=== PATIENT | female | born 1970 | race Two or more races ===

== ENCOUNTER 2016-03-09 19:22 | Emergency (ER) | payer BC, OTHER ==
[2016-03-09 19:39] VITALS: BP 127/72; PULSE 80; RESP 18; TEMP 97.7; O2SAT 96
[2016-03-09] MEDS ORDERED: MAALOX/HYOSC GI COCKTAIL 45 ML BOTTLE PO ONE (20:05)
[2016-03-09 20:21] LABS: % IMMATURE GRANULYOCYTES 0.2 % (0.0-1.1); ABSOLUTE IMMATURE GRANULOCYTES 0.01 10^3/uL (0.00-0.10); ADD DIFF? NO; ADD MORPH? NO; ADD SCAN? NO; ATYPICAL LYMPHOCYTE FLAG 10 (0-99); FRAGMENT RBC FLAG 0 (0-99); HEMATOCRIT 45.6 % (38.0-47.0); LEFT SHIFT FLG 0 (0-99); LIPEMIA HEMOLYSIS FLAG 80 (0-99); MEAN CELL HEMOGLOBIN 30.3 pg (27.9-34.1); MEAN CELL HEMOGLOBIN CONCENTR. 32.9 g/dL (32.4-36.7); MEAN CELL VOLUME 92.1 fL (81.5-99.8); PLATELET CLUMPS FLAG 10 (0-99); PLATELET COUNT 193 10^3/uL (150-400); RED BLOOD CELL COUNT 4.95 10^6/uL (4.18-5.33); RED CELL DISTRIBUTION WIDTH 12.1 % (11.5-15.2)
[2016-03-09 20:27] LABS: COLOR YELLOW; LEUKOCYTE ESTERASE,URINE 2+ (NEGATIVE); NITRITE,URINE NEGATIVE (NEGATIVE)
[2016-03-09 20:37] LABS: ALANINE AMINOTRANSFERASE 32 IU/L (9-52); ALBUMIN 4.5 g/dL (3.5-5.0); ALKALINE PHOSPHATASE 61 IU/L (38-126); ANION GAP 12 mEq/L (8-16); ASPARTATE AMINOTRANSFERASE 24 IU/L (14-46); BILIRUBIN,TOTAL 0.5 mg/dL (0.1-1.4); CARBON DIOXIDE 31 mEq/l (22-31); CHLORIDE 100 mEq/L (97-110); CREATININE 0.7 mg/dL (0.6-1.0); GLOMERULAR FILTRATION RATE > 60; GLUCOSE 96 mg/dL (70-100); SODIUM 143 mEq/L (134-144); TOTAL PROTEIN 7.9 g/dL (6.3-8.2)
[2016-03-09 20:45] LABS: BACTERIA 2+ /hpf (NONE SEEN); WBC,URINE 25-50 /hpf (0-3)
[2016-03-09] MEDS ORDERED: CEPHALEXIN 500 MG CAP PO ONE (21:01)
--- NOTE | 2016-03-09 21:03 | UCPHY ---
H & P Patient Type: New Chief Complaint Nursing Narrative: MULTIPLE COMPLAINTS, tongue feels weird, she has a strange smell, stomach pain and feelt feel bold, also bones hurt. Denies fever, denies n.v.d Time Seen by Provider: 03/09/16 19:48 HPI/ROS: This patient had many somatic complaints over the past 6 months. She reports that her tongue feels wormy. She complains of air smiling find any. She has myalgias. She reports that her back hurts and bilateral flank area for multiple months [id number] intensity. She also reports a feeling of anxiety. She has decreased appetite recently as well. She reports mild epigastric burning discomfort as well that improves when she eats food. ROS: No high fevers or chills. No other constitutional complaints except mild fatigue. HEENT: She has intermittent frontal headaches but none currently. She reports no pulmonary symptoms. No coughing. GI: No lower belly pain. No nausea or vomiting. : No complaints. Her last menstrual. Was urine half ago. 10 point ROS is otherwise negative Source: Patient, Family Exam Limitations: Language barrier (Patient's son and daughter translate. Her also translate some provides history ) - Personal History LMP (Females 10-55): Post Menopausal - Medical/Surgical History Hx Asthma: No Hx Chronic Respiratory Disease: No Hx Diabetes: No Hx Cardiac Disease: No Hx Renal Disease: No Hx Cirrhosis: No Hx Alcoholism: No Hx HIV/AIDS: No Hx Splenectomy or Spleen Trauma: No - Family History Significant Family History: No pertinent family hx - Social History Smoking Status: Never smoked Alcohol Use: None Drug Use: None Additional Social History: The patient is a homemaker - Physical Exam Exam: General Appearance: Alert, no distress. Eyes: Pupils equal and round no pallor or injection. ENT, Mouth: Mucous membranes moist. Respiratory: There are no retractions, lungs are clear to auscultation. Cardiovascular: Regular rate and rhythm. Gastrointestinal: Abdomen is soft with mild epigastric tenderness that reproduces her symptoms., no masses, bowel sounds normal. Back: Mild CVA tenderness bilaterally Neurological: Alert with no focal deficits Skin: Warm and dry, no rashes. Musculoskeletal: Neck is supple nontender. Extremities are symmetrical, full range of motion. Psychiatric: Mood and affect are normal DIFFERENTIAL DIAGNOSIS: After history and physical exam differential diagnosis was considered for pyelonephritis, cystitis, metabolic disarray, thyroid disease , anemia Constitutional: Initial Vital Signs Temperature (C) 36.5 C 03/09/16 19:35 Heart Rate 80 03/09/16 19:35 Respiratory Rate 18 03/09/16 19:35 Blood Pressure 127/72 H 03/09/16 19:35 O2 Sat (%) 96 03/09/16 19:35 O2 Delivery Mode Room Air Allergies/Adverse Reactions: No Known Allergies Allergy (Verified 03/09/16 19:34) Home Medications: Medication Instructions Recorded NO HOME MEDS 12/16/12 ALPRAZolam [Xanax 0.5 MG (*)] 03/09/16 Cephalexin [Keflex (*)] 500 mg PO TID #21 cap 03/09/16 Medical Decision Making ED Course/Re-evaluation: GI cocktail with some improvement in her epigastric discomfort CBC, metabolic panel and TSH are normal Keflex p.o. for the UTI. I counseled patient and family regarding her UTI and gastritis. No other concerning findings on workup. - Data Points Laboratory Results: Laboratory Results 03/09/16 20:12 03/09/16 20:12 03/09/16 03/09/16 20:12 20:10 WBC 5.67 10^3/uL (3.80-9.50) RBC 4.95 10^6/uL (4.18-5.33) Hgb 15.0 g/dL (12.6-16.3) Hct 45.6 % (38.0-47.0) MCV 92.1 fL (81.5-99.8) MCH 30.3 pg (27.9-34.1) MCHC 32.9 g/dL (32.4-36.7) RDW 12.1 % (11.5-15.2) Plt Count 193 10^3/uL (150-400) MPV 11.0 fL (8.7-11.7) Neut % (Auto) 51.2 % (39.3-74.2) Lymph % (Auto) 41.6 % (15.0-45.0) [place] % (Auto) 5.3 % (4.5-13.0) Eos % (Auto) 1.2 % (0.6-7.6) Baso % (Auto) 0.5 % (0.3-1.7) Nucleat RBC Rel Count 0.0 % (0.0-0.2) Absolute Neuts (auto) 2.90 10^3/uL (1.70-6.50) Absolute Lymphs (auto) 2.36 10^3/uL (1.00-3.00) Absolute Monos (auto) 0.30 10^3/uL (0.30-0.80) Absolute Eos (auto) 0.07 10^3/uL (0.03-0.40) Absolute Basos (auto) 0.03 10^3/uL (0.02-0.10) Absolute Nucleated RBC 0.00 10^3/uL (0-0.01) Immature Gran % 0.2 % (0.0-1.1) Immature Gran # 0.01 10^3/uL (0.00-0.10) Sodium 143 mEq/L (134-144) Potassium 4.0 mEq/L (3.5-5.2) Chloride 100 mEq/L (97-110) Carbon Dioxide 31 mEq/l (22-31) Anion Gap 12 mEq/L (8-16) BUN 15 mg/dL (7-23) Creatinine 0.7 mg/dL (0.6-1.0) Estimated GFR > 60 Glucose 96 mg/dL (70-100) Calcium 10.0 mg/dL (8.5-10.4) Total Bilirubin 0.5 mg/dL (0.1-1.4) AST 24 IU/L (14-46) ALT 32 IU/L (9-52) Alkaline Phosphatase 61 IU/L (38-126) Total Protein 7.9 g/dL (6.3-8.2) Albumin 4.5 g/dL (3.5-5.0) TSH 1.900 uIU/mL (0.465-4.680) Urine Color YELLOW Urine Appearance HAZY Urine pH 7.0 (5.0-7.5) Ur Specific [place] 1.010 (1.002-1.030) Urine Protein NEGATIVE (NEGATIVE) Urine Ketones NEGATIVE (NEGATIVE) Urine Blood 1+ H (NEGATIVE) Urine Nitrate NEGATIVE (NEGATIVE) Urine Bilirubin NEGATIVE (NEGATIVE) Urine Urobilinogen 0.2 EU (0.2-1.0) Ur Leukocyte Esterase 2+ H (NEGATIVE) Urine RBC 1-3 /hpf (0-3) Urine WBC 25-50 H /hpf (0-3) Ur Epithelial Cells TRACE /lpf (NONE-1+) Urine Bacteria 2+ H /hpf (NONE SEEN) Urine Glucose NEGATIVE (NEGATIVE) Medications Given: Discontinued Medications Cephalexin HCl (Keflex) 500 mg PO EDNOW ONE PRN Reason: Protocol Stop: 03/09/16 21:02 Last Admin: 03/09/16 21:16 Dose: 500 mg Miscellaneous Medication (Gi Cocktail(No Lido)) 45 ml PO EDNOW ONE Stop: 03/09/16 20:06 Last Admin: 03/09/16 20:21 Dose: 45 ml Departure - Departure Disposition: Home, Routine, Self-Care Clinical Impression: Urinary tract infection Qualifiers: Urinary tract infection type: acute pyelonephritis Qualifier Code: (N10) Acute pyelonephritis Condition: Good Instructions: Gastritis (ED), Urinary Tract Infection in Women (ED) Additional Instructions: Diagnoses: 1. Gastritis 2. Urinary tract infection Plan: Drink plenty fluids Light diet to feel improved Prilosec-40 mg daily [id number] until stomach feels improved Maalox in addition as needed Keflex antibiotic for urinary tract infection Return for any significant worsening despite the treatment plan Follow up with primary care physician for any ongoing symptoms despite treatment plan. Referrals: HONG RUIZ,. [Primary Care Provider] - As per Instructions Prescriptions: Cephalexin [Keflex (*)] 500 mg PO TID #21 cap - PQRS PQRS Measurement: NA
== END 2016-03-09 21:14 | disposition home or self-care (01) ==
LOC: CED 19:22
DX: K29.70 Gastritis, unspecified, without bleeding (principal); N39.0 Urinary tract infection, site not specified; F41.1 Generalized anxiety disorder
CPT/HCPCS: 80053-PO; 81003-PO; 81015-PO; 84443-PO; 85025-PO; 99204-PO; G0463-PO

== ENCOUNTER 2016-03-13 16:09 | Emergency (ER) | payer BC, OTHER ==
[2016-03-13 16:30] VITALS: BP 163/77; PULSE 81; RESP 16; TEMP 98.1; O2SAT 97
[2016-03-13] MEDS ORDERED: NS 1,000 ML IV ONE (17:37)
[2016-03-13 17:58] LABS: % IMMATURE GRANULYOCYTES 0.2 % (0.0-1.1); ABSOLUTE IMMATURE GRANULOCYTES 0.01 10^3/uL (0.00-0.10); ADD DIFF? NO; ADD MORPH? NO; ADD SCAN? NO; ATYPICAL LYMPHOCYTE FLAG 30 (0-99); FRAGMENT RBC FLAG 0 (0-99); HEMATOCRIT 41.3 % (38.0-47.0); HEMOGLOBIN 13.8 g/dL (12.6-16.3); LEFT SHIFT FLG 0 (0-99); LIPEMIA HEMOLYSIS FLAG 80 (0-99); MEAN CELL HEMOGLOBIN 30.6 pg (27.9-34.1); MEAN CELL HEMOGLOBIN CONCENTR. 33.4 g/dL (32.4-36.7); MEAN CELL VOLUME 91.6 fL (81.5-99.8); MEAN PLATELET VOLUME 11.2 fL (8.7-11.7); PLATELET CLUMPS FLAG 10 (0-99); PLATELET COUNT 193 10^3/uL (150-400); RED BLOOD CELL COUNT 4.51 10^6/uL (4.18-5.33)
[2016-03-13 18:06] LABS: ALANINE AMINOTRANSFERASE 35 IU/L (9-52); ALBUMIN 3.9 g/dL (3.5-5.0); ALKALINE PHOSPHATASE 49 IU/L (38-126); ANION GAP 10 mEq/L (8-16); ASPARTATE AMINOTRANSFERASE 22 IU/L (14-46); BILIRUBIN,TOTAL 0.7 mg/dL (0.1-1.4); BILIRUBIN-CONJUGATED 0.2 mg/dL (0.0-0.5); BILIRUBIN-UNCONJUGATED 0.5 mg/dL (0.0-1.1); CALCIUM 9.5 mg/dL (8.5-10.4); CARBON DIOXIDE 28 mEq/l (22-31); CHLORIDE 102 mEq/L (97-110); CREATININE 0.7 mg/dL (0.6-1.0); GLOMERULAR FILTRATION RATE > 60; GLUCOSE 87 mg/dL (70-100); POTASSIUM 3.7 mEq/L (3.5-5.2); SODIUM 140 mEq/L (134-144); TOTAL PROTEIN 7.2 g/dL (6.3-8.2)
--- NOTE | 2016-03-13 18:28 | UCPHY ---
H & P Patient Type: Established Chief Complaint Nursing Narrative: body aches for 8 months .multiple complaints for last 8 months. vaginal d/c . Time Seen by Provider: 03/13/16 17:03 HPI/ROS: CHIEF COMPLAINT: Body aches, vaginal discharge HISTORY OF PRESENT ILLNESS: This is a 45-year-old female who was seen at urgent care 5 days ago with multiple complaints including body aches, abdominal pain, a foul taste in her mouth, shaking, and cold feet. At that time she had extensive workup including labs which were all normal. Urinalysis was suggestive of possible urinary tract infections patient was placed on Keflex. She was also given Prilosec for abdominal upset. She returns today reporting ongoing body aches, especially in the lower back as well as ongoing nausea. She also reports vaginal discharge which is green. Vaginal discharge is not itchy. On further history patient's complaints of muscle aches and body aches have been present for almost 8 months. She has also been reporting abdominal discomfort for about 8 months. She has seen Gastroenterology and had upper and lower endoscopy without significant findings. Sounds like she has been prescribed Xanax to use to help her sleep. She reports feeling little energy in the morning which she attributes to taking the Xanax to help her sleep. Her muscle aches become worse as the day goes on. She has had no fevers, rash, vomiting, or diarrhea throughout this illness. She has no joint swelling. Her primary care physician is AYLIN Sheikh at [facility]. No fever, chills, chest pain, shortness of breath, palpitations, vomiting, diarrhea, urinary complaints, headache, lightheadedness. REVIEW OF SYSTEMS: Aside from elements discussed in the HPI, a comprehensive 10-point review of systems was reviewed and is negative. PAST MEDICAL HISTORY: Postmenopausal. Patient reports that her last period was a year ago. SOCIAL HISTORY: . Here with her family. They are serving as an regional guide. VITAL SIGNS Reviewed by me. GENERAL: Well-developed, well-nourished, tearful, reports being frustrated that no one has been able to find an answer to her complaints. HEENT: Atraumatic. Eyes: No icterus, no injection. Mouth: moist mucous membranes. No erythema or lesions. Neck: supple with no adenopathy. LUNGS: Clear to auscultation bilaterally, no wheezes, rhonchi or rales. CARDIAC: Regular rate and rhythm, no rubs, murmurs or gallops. ABDOMEN: Soft, mild suprapubic tenderness, questionable fullness. Nondistended , bowel sounds normal. BACK: No CVA tenderness. PELVIC: Frothy yellow green watery discharge. Slight left adnexal tenderness on bimanual. Uterine fullness on bimanual exam. EXTREMITIES: No trauma. No edema. Range of motion is normal throughout. No palpable tenderness in the muscles. No erythema. No joint swelling. NEURO: Alert and oriented, grossly nonfocal. SKIN: Warm and dry, no rash. PSYCHIATRIC: Normal mentation, no agitation. - Personal History LMP (Females 10-55): Post Menopausal - Medical/Surgical History Hx Asthma: No Hx Chronic Respiratory Disease: No Hx Diabetes: No Hx Cardiac Disease: No Hx Renal Disease: No Hx Cirrhosis: No Hx Alcoholism: No Hx HIV/AIDS: No Hx Splenectomy or Spleen Trauma: No Other PMH: PCP Carlito Layton. FLU vacc NONE. Tetanus ??? Denies Surgery - Family History Significant Family History: No pertinent family hx - Social History Smoking Status: Never smoked Constitutional: Initial Vital Signs Temperature (C) 36.7 C 03/13/16 16:22 Heart Rate 81 03/13/16 16:22 Respiratory Rate 16 03/13/16 16:22 Blood Pressure 163/77 H 03/13/16 16:22 O2 Sat (%) 97 03/13/16 16:22 O2 Delivery Mode Room Air Allergies/Adverse Reactions: No Known Allergies Allergy (Verified 03/13/16 16:25) Home Medications: Medication Instructions Recorded ALPRAZolam [Xanax 0.5 MG (*)] 03/09/16 Cephalexin [Keflex (*)] 500 mg PO TID #21 cap 03/09/16 Metronidazole 500 mg PO BID #14 tablet 03/13/16 Prilosec Otc 03/13/16 Medical Decision Making ED Course/Re-evaluation: 45-year-old female presenting with complaints of body aches, nausea, shaking, abdominal upset for months. Laboratory evaluation evaluation urgent care largely unremarkable. Patient does have vaginal discharge on examination. This is positive for clue cells. Patient will be treated for for possible bacterial vaginosis. DNA probes are pending at this time. I did discuss at length with the patient and her family regarding appropriate follow-up to include following up with her primary care physician. Differential Diagnosis: Differential diagnoses for the patient's symptom complex was considered including but not limited to anxiety, fibromyalgia, myositis, dermatomyositis, hypothyroidism, vaginal infection, bacterial vaginosis. - Data Points Laboratory Results: Laboratory Results 03/13/16 17:45 03/13/16 17:45 Medications Given: Discontinued Medications Sodium Chloride (Ns) 1,000 mls @ 0 mls/hr IV ONCE ONE PRN Reason: Wide Open Stop: 03/13/16 17:38 Last Admin: 03/13/16 17:45 Dose: 1,000 mls Ketorolac Tromethamine (Toradol) 30 mg IVP EDNOW ONE Stop: 03/13/16 19:41 Last Admin: 03/13/16 19:50 Dose: 30 mg Departure - Departure Disposition: Home, Routine, Self-Care Clinical Impression: Body aches, Vaginal discharge Condition: Good Instructions: Chronic Pain (ED), Bacterial Vaginosis (ED) Additional Instructions: Please follow up with your primary physician at [facility]. I would recommend that you be evaluated by a hide buffer. Your vaginal discharge may indicate an infection called bacterial vaginosis. The treatment for that is to take metronidazole 500 mg 2 times a day. Please do not drink alcohol with this medication. It may make water and other drinks taste like metal. Your primary care physician can check on the culture results to see if you do need to continue taking this medicine. Those cultures will be available tomorrow. Referrals: [facility],. [Primary Care Provider] - As per Instructions Jose Guadalupe Ward MD [Medical Doctor] - As per Instructions (Dr. Ward is a hide buffer.) Jeremias Scmhid MD [Medical Doctor] - As per Instructions (Dr. Schmid is a hide buffer) Prescriptions: Metronidazole 500 mg PO BID #14 tablet - PQRS PQRS Measurement: Not applicable
[2016-03-13] MEDS ORDERED: IOPAMIDOL (ISOVUE-300) 100 ML BTL IV ONE (18:35)
[2016-03-13] MEDS ORDERED: KETOROLAC 30 MG/1 ML SDV IVP ONE (19:40)
--- NOTE | 2016-03-13 20:29 | CT ---
CT Scan of the Abdomen and Pelvis (With Contrast) March 13, 2016 at 1856 Hours History: Lower abdominal pain, pelvic pain. Technique: Axial computed tomographic images of the abdomen and pelvis were obtained with the unevent ful intravenous administration of 90 mL Isovue-300 contrast. No oral or rectal contrast which limits the study. Dose reduction techniques were utilized. CT Abdomen Findings: Lung bases: Normal. Liver: Normal. Biliary system: No obstruction. Spleen: Normal. Pancreas: Normal. Adrenals: Normal. Kidneys: No obstruction or solid masses.. Abdominal aorta: No aneurysm. No bowel obstruction, ascites, or significant retroperitoneal lymphadenopathy. CT Pelvis Findings: Moderate stool throughout the colon. No evidence of appendiceal inflammatory lund ges. No adnexal masses or uterine enlargement. No pelvic fluid collections or significant adenopathy. No lumbar compression fractures. Impression: 1. Constipation. 2. No CT evidence of appendicitis, abscess or bowel obstruction. 3. No evidence of adnexal masses, uterine enlargement, or pelvic fluid collections. Consider follow-u p ultrasound pelvis. Findings and recommendations discussed with emergency department physician, Dr. Camila Cao at 1920 hours today. Final report concurs with initial preliminary interpretation.
[2016-03-14 15:11] LABS: CHLAMYDIA AMPLIFICATION GENPRB NEGATIVE (NEGATIVE)
== END 2016-03-13 20:30 | disposition home or self-care (01) ==
LOC: CED 16:09
DX: R52 Pain, unspecified (principal); N89.8 Other specified noninflammatory disorders of vagina; Z78.0 Asymptomatic menopausal state
CPT/HCPCS: 74177-PO; 80048-PO; 80076-PO; 82550-PO; 83690-PO; 85025-PO; 87210-PO; 96361-PO; 96374-PO; 99214-PO; G0463-PO; J1885; Q9967

== ENCOUNTER 2018-04-10 23:15 | Emergency (ER) | payer OTHER ==
--- NOTE | 2018-04-10 23:34 | EDPHY ---
H & P Stated Complaint: Chest pain Time Seen by Provider: 04/10/18 23:29 HPI/ROS: CC: Chest pressure HPI: (WARP PREPARER: MINDI #[id number]) this 47-year-old female presents to emergency department today with her complaining of central chest pressure that started 1 hr prior to arrival at approximately 10:00 p.m. this evening. She was lying down resting but not sleeping when the discomfort came on. It was 7/10 at onset. It radiated to her upper back. She denied pain in her neck, jaw, or arms. At the time of the pain she states her feet were very cold and she somehow thinks this might be related. She had mild nausea. She did not have vomiting, diaphoresis, or shortness of breath. She states the pain was 7/10 at onset but is 0/10 right now. She cannot think of any aggravating factors but wrapping her arms around her chest and hugging herself decreased the pain. She ate dinner at approximately 8:00 p.m. And said she had a glass of whole milk and white bread. Earlier in the day she had steamed chicken with veggies and a tortilla. She has had 2 prior episodes of discomfort like this and saw her primary care provider yesterday but felt they ignored her complaints. She has never used tobacco products, there is no family history of premature coronary artery disease. REVIEW OF SYSTEMS: Constitutional: No fever, no chills. Eyes: No discharge. ENT: No sore throat. Sometimes she feels like her throat is closing and her lymph nodes are swollen. Respiratory: No cough, no shortness of breath. Cardiac: No palpitations. Gastrointestinal: No abdominal pain, no vomiting. Genitourinary: No dysuria. Musculoskeletal: See HPI. Skin: No rashes. Neurological: No headache. Source: Patient, Family Exam Limitations: Language barrier (Wrecker Operator #[id number]) - Medical/Surgical History PMH: Past medical history includes fibromyalgia, and possibly gastritis. Past surgical history includes cholecystectomy in May 2017. Family history is negative for premature coronary artery disease. She states her mother and father have no medical issues. No known drug allergies Medications include gabapentin, sertraline, duloxetine. Primary care providers Dr. Amber العلي. Hx Asthma: No Hx Chronic Respiratory Disease: No Hx Diabetes: No Hx Cardiac Disease: No Hx Renal Disease: No Hx Cirrhosis: No Hx Alcoholism: No Hx HIV/AIDS: No Hx Splenectomy or Spleen Trauma: No Other PMH: PCP Carlito Layton. FLU vacc NONE. Tetanus ??? Denies Surgery - Social History Smoking Status: Never smoked Additional Social History: The patient denies ever using tobacco products, she does not drink alcohol or use marijuana. She is . - Physical Exam Exam: General Appearance: Alert, anxious. Eyes: Pupils equal and round no pallor or injection. ENT, Mouth: Mucous membranes are moist. No erythema. Respiratory: There are no retractions, lungs are clear to auscultation. No rales, rhonchi, or wheezing. Cardiovascular: Regular rate and rhythm. No murmurs, gallops, or rubs. Gastrointestinal: Abdomen is soft and nontender, no masses, bowel sounds normal. Neurological: Awake and alert, sensory and motor exams grossly normal. Skin: Warm and dry, no rashes. Musculoskeletal: Neck is supple and nontender. Extremities are symmetrical, full range of motion. DP pulses strong and intact bilaterally. Psychiatric: Patient is oriented X 3, there is no agitation. DIFFERENTIAL DIAGNOSIS: After history and physical exam differential diagnosis was considered for but not limited to and in no particular order: [Acute coronary syndrome, angina, gastroesophageal reflux, pancreatitis, pneumonia, PE , anxiety.] Constitutional: Initial Vital Signs Temperature (C) 98.2 F 04/10/18 23:15 Heart Rate 65 04/10/18 23:15 Respiratory Rate 16 04/10/18 23:15 Blood Pressure 148/96 H 04/10/18 23:15 O2 Sat (%) 97 04/10/18 23:15 O2 Delivery Mode Room Air Allergies/Adverse Reactions: No Known Allergies Allergy (Verified 04/10/18 23:25) Home Medications: Medication Instructions Recorded DULoxetine 04/10/18 Gabapentin 04/10/18 Sertraline HCl 04/10/18 Medical Decision Making - Diagnostics EKG Interpretation: EKG 1 at 2324 shows a normal sinus rhythm with a heart rate of 63, probable left atrial enlargement and borderline T-wave abnormalities inferiorly. EKG 2 at 0111 shows normal sinus rhythm, probable left atrial enlargement. No acute ischemic changes. Imaging: I viewed and interpreted images myself (PA/Lat CXR NAD by my read. Please refer to final radiology report.) ED Course/Re-evaluation: The patient was seen and examined, vital signs reviewed. Prior records reviewed. EKGs showed no acute ischemic changes. CBC was normal except for a borderline elevated creatinine at 1.1 A comprehensive metabolic panel and lipase were normal. Troponins 1 and 2 were normal. Chest x-ray showed no acute process by my read. Please refer to the final radiology report. Although the patient states she just saw her primary care provider yesterday and has mentioned these episodes of chest discomfort, I have advised her to follow up with her primary care provider within the week for re-evaluation. She should return to the emergency room if symptoms should change or worsen as discussed. As noted elsewhere in the chart, family specialist #[id number] was used in the evaluation of this patient. - Data Points Point of Care Test Results: CBC CBC Collection Date 04/10/18 CBC Collection Time 23:45 WBC 5.19 RBC 4.82 HGB 14.3 HCT 43.9 PLT 184 Neut # 2.64 Neut 50.8 LYMPH # 2.18 LYMPH 42.0 MCV 91.1 Chemistry 04/11/18 04/10/18 04/10/18 01:10 23:55 23:51 POC Sodium 142 mEq/L mEq/L (135-145) POC Potassium 3.6 mEq/L mEq/L (3.3-5.0) POC Chloride 107.0 mEq/L mEq/L (97-110) POC Total CO2 28 mEq/L mEq/L (22-31) POC BUN 12 mg/dL mg/dL (7-23) POC Creatinine 1.1 mg/dL H mg/dL (0.6-1.0) POC Glucose 103 mg/dL H mg/dL (70-100) POC Calcium 9.9 mg/dL mg/dL (8.5-10.4) POC Total Bilirubin 0.8 mg/dL mg/dL (0.1-1.4) POC AST 24 IU/L IU/L (14-46) POC ALT 19 IU/L IU/L (9-52) POC Alk Phosphatase 80 IU/L IU/L (38-126) POC Troponin I 0.00 ng/mL ng/mL 0.01 ng/mL ng/mL (0.00-0.08) (0.00-0.08) POC Total Protein 7.9 g/dL g/dL (6.3-8.2) POC Albumin 3.9 g/dL g/dL (3.5-5.0) Departure - Departure Disposition: Home, Routine, Self-Care Clinical Impression: Chest pain Condition: Good Instructions: Chest Pain (ED) Additional Instructions: Call your doctor first thing in the morning to arrange follow up. Tell them your were in the ED for chest pain and you may need further evaluation (stress test, echocardiogram) if they feel it is clinically warranted. Try using Prilosec OTC as directed for the next two weeks. Return to the ER immediately if symptoms change or worsen or any other concerns. Referrals: Amber العلي MD [Medical Doctor] - 5-7 days, call for appt. Print Language: English
[2018-04-11 01:45] VITALS: BP 112/71
--- NOTE | 2018-04-11 03:14 | CPEKG ---
Test Reason : OPEN Blood Pressure : / mmHG Vent. Rate : 062 BPM Atrial Rate : 062 BPM P-R Int : 172 ms QRS Dur : 084 ms QT Int : 414 ms P-R-T Axes : 064 053 021 degrees QTc Int : 421 ms Sinus rhythm Probable left atrial enlargement Confirmed by Kathryn López ([id number]) on 04/11/2018 3:14:10 AM Referred By: Kathryn López Confirmed By:Kathryn López
--- NOTE | 2018-04-11 03:15 | CPEKG ---
Test Reason : OPEN Blood Pressure : / mmHG Vent. Rate : 063 BPM Atrial Rate : 063 BPM P-R Int : 164 ms QRS Dur : 084 ms QT Int : 402 ms P-R-T Axes : 043 048 014 degrees QTc Int : 412 ms Sinus rhythm Probable left atrial enlargement Borderline T abnormalities, inferior leads Confirmed by Kathryn López ([id number]) on 04/11/2018 3:14:27 AM Referred By: Kathryn López Confirmed By:Kathryn López
== END 2018-04-11 01:40 | disposition home or self-care (01) ==
LOC: CED 23:15
DX: R07.9 Chest pain, unspecified (principal)
CPT/HCPCS: 71046-PO; 80053-ER; 84484-ER

== ENCOUNTER → 2018-05-09 | Outpatient (CLI) | payer OTHER | LOC: CIMAGING 11:21 | PROVIDERS: ATTEND Family Medicine | DX: Z13.6 Encounter for screening for cardiovascular disorders (principal) | CPT/HCPCS: 75571-PO ==

== ENCOUNTER 2018-06-11 22:00 | Emergency (ER) | payer OTHER ==
[2018-06-11] MEDS: KETOROLAC 15 MG/1 ML SDV IVP ONE ×2 (22:23→22:54)
[2018-06-11] MEDS ORDERED: HYOSCYAMINE SULFATE 0.125 MG TAB PO ONE (22:38)
[2018-06-11] MEDS ORDERED: MAG HYDROX/AL HYDROX/SIMETH 30 ML UDCUP PO ONE (22:38)
--- NOTE | 2018-06-11 22:56 | EDPHY ---
H & P Stated Complaint: All over body pain since 1800. Ibuprofen and tylenol not working. 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 She has had episodes of this in the past with negative CT cardiac test done on May 09 of this year score of 0. She reports the nature the pain is a strong pressure with no clear exacerbating factors. She reports slight dyspnea associated with this and explains that it came on at rest at 6:00 p.m. While seated. She describes slight lightheadedness in addition and mild nausea. She did not take any medications for her pain prior to arrival. She has been on antacids in the past but is not currently. ROS: Constitutional: No fevers or fatigue HEENT: No URI symptoms Pulmonary: No cough. Cardiovascular: No heart palpitations. No lightheadedness. GI: No significant abdominal pain. She does report some bloating intermittently. She reports vacillating between constipation and diarrhea. : No urinary symptoms at this time. Integumentary: No rash 10 point review of symptoms is performed and otherwise negative with exception of pertinent positives and negatives listed in HPI and ROS (Francisco Junior) - Medical/Surgical History PMH: She had endoscopy in December that revealed esophagitis and was on an antacid for 2 weeks thereafter that she did feel improved her symptoms and so discontinued and acid clarke at that time She has presented here with similar symptoms relieved by Maalox in the past is also UTI is a similar symptoms in the past. (Francisco Junior) - Physical Exam Exam: General Appearance: Alert, no distress. Eyes: Pupils equal and round no pallor or injection. ENT, Mouth: Mucous membranes moist. Respiratory: There are no retractions, lungs are clear to auscultation. Cardiovascular: Regular rate and rhythm. Gastrointestinal: Abdomen is soft and nontender, no masses, bowel sounds normal. Neurological: GCS 15 Skin: Warm and dry, no rashes. Musculoskeletal: Neck is supple nontender. Extremities are symmetrical, full range of motion. Psychiatric: Mood and affect are normal DIFFERENTIAL DIAGNOSIS: After history and physical exam differential diagnosis was considered for GERD, esophagitis, gastritis, musculoskeletal source of pain , doubt myocardial ischemic disease given recent negative CT cardiac, PE, pneumonia, pneumothorax, UTI (Francisco Junior) Constitutional: Initial Vital Signs Temperature (C) 36.6 C 06/11/18 22:11 Heart Rate 68 06/11/18 22:11 Respiratory Rate 16 06/11/18 22:11 Blood Pressure 141/92 H 06/11/18 22:11 O2 Sat (%) 98 06/11/18 22:11 O2 Delivery Mode Room Air Allergies/Adverse Reactions: No Known Allergies Allergy (Verified 06/11/18 22:10) Home Medications: Medication Instructions Recorded DULoxetine 04/10/18 Gabapentin 04/10/18 Sertraline HCl 04/10/18 Cephalexin [Keflex (*)] 500 mg PO TID #21 cap 06/11/18 Omeprazole Magnesium 20 mg PO DAILY #30 capsule. 06/12/18 Medical Decision Making - Diagnostics EKG Interpretation: 12 lead EKG performed shortly after arrival reveals sinus rhythm at 69 Intervals: Normal throughout [place]: Normal throughout ST segments: Normal throughout Overall assessment sinus rhythm without evidence of acute ischemia by my interpretation (Francisco Junior) ED Course/Re-evaluation: Masnow and Levsin p.o. I spoke with oncoming emergency physician Dr. Ellis and disposition. regarding this patient. He will follow up with pending studies-chest x-ray, CBC, metabolic panel, LFTs, D-dimer troponin Her urinalysis reveals 3+ leukocytes consistent with UTI. I suspect that she is having esophagitis accounting for chest symptoms currently. (Francisco Junior) Other Provider: Care assumed at change of shift. D/w off going physician. Chart reviewed. Pt interviewed and examined. With use of an site interpreter, She has had a frustrating several years. During that entire time she has been seen by Rheumatology as well as a PCP for hand and foot burning discomfort with at times being so hot that she has to apply ice. She states that she has been tested be prediabetic but not actually diabetic per Se and thus is not on any specific treatment. The hemoglobin A1c measurements are not available to us. To that and she has been on Zoloft, Cymbalta, and gabapentin without any dose adjustments and without any relief. They had attributed the discomfort to her underlying anxiety and nerves. Over last 6 months she has been seen both here and at her PCPs office for chest discomfort radiating up to the back. Fortunately for her she had a CT angiogram this past May which showed a eating essentially negative burden of coronary artery calcification and no signs of plaque formation. Thus her likelihood of having coronary disease is essentially 0. She has no risk factors for DVT/PE at this point in time. She describes the discomfort today is more of a pain than her usual baseline burning sensation that she has in her chest. Of note is that this past December she had an EGD without colonoscopy. She relates that she 5 was found to have inflammation and told to take Prilosec for 2 weeks and then see her family physician. She has not been on Prilosec since that time. Also of note, is that she never does experience water brash. I have made attempts to read the note through the [employer] web site but have been unsuccessful lying in tonight. This discomfort has not been associated with any significant weight loss or the sweating or diaphoresis or shortness of breath. Recently she has had a bit of a phlegm production but no actual cough. She typically has more problems in July than this time of year with respect to allergies. General Appearance: Alert, no distress. Afebrile. Normal phonation. No respiratory distress. Eyes: Pupils equal and round no pallor or injection. No icterus ENT, Mouth: Mucous membranes moist Neck: No JVD. Trachea in midline. Respiratory: There are no retractions, lungs are clear to auscultation. Chest wall: Nontender to palpation. No crepitus. Cardiovascular: Regular rate and rhythm, without murmur. Abdomen: Soft and nontender, no masses, bowel sounds normal. Skin: Warm and dry, no rashes. Musculoskeletal: No joint swelling. Extremities: No edema. Homans sign negative. No cords. Psychiatric: Normal affect. Patient is oriented X 3. There is no agitation Laboratory studies here include the following: Negative chest x-ray. Normal EKG Negative CBC Normal electrolytes Normal LFTs Normal troponin Normal D-dimer. Urinalysis here: Specific gravity 1.015 3+ leukocytes Negative for nitrites, protein. Impressions: UTI Atypical chest pain likely reflux Differential diagnosis includes but is not limited to the following: ACS, myocardial infarction, pneumothorax, pleurisy, pulmonary embolus, CHF, Pneumonia, bronchospasm, Asthma, anxiety, muscle strain, diabetic neuorpathy. She has had extensive workup as an outpatient in the last 6 months to exclude major organic disease. It is evident that her coronary artery heard risk level is essentially 0 in the setting of a normal CT angiogram. This is further bolstered by the negative troponin here. She continues to complain bitterly of her hands and feet bother her. I suspect her hemoglobin A1c was low enough that a serous consideration for duabetic neuropathy given the stocking-glove distribution, was in fact negative. However, we do not actually know the dosages of medications. Perhaps he needs an increase in his medication dosing to achieve better affect as well as adding metformin for diabetic neuropathy and might be in fact better in 6 months time. Nonetheless she does have per personal report a EGD that showed inflammation esophagus but was only on 2 weeks of therapy. Given that this is reflux symptomatology has been ongoing for quite some time I have cautioned her regarding not eating 3 hr before bed, avoiding caffeine in the afternoon, and starting apprised that regimen for the next 2 months. (Carlos Ellis) - Data Points Laboratory Results: 06/12/18 06/11/18 06/11/18 00:06 23:09 22:34 POC Sodium 138 mEq/L mEq/L (135-145) POC Potassium 3.4 mEq/L mEq/L (3.3-5.0) POC Chloride 106.0 mEq/L mEq/L (97-110) POC Total CO2 28 mEq/L mEq/L (22-31) POC BUN 10 mg/dL mg/dL (7-23) POC Creatinine 0.8 mg/dL mg/dL (0.6-1.0) POC Glucose 107 mg/dL H mg/dL (70-100) POC Calcium 9.4 mg/dL mg/dL (8.5-10.4) POC Total Bilirubin 0.6 mg/dL mg/dL (0.1-1.4) POC GGT 19 IU/L IU/L (5-65) POC AST 24 IU/L IU/L (14-46) POC ALT 20 IU/L IU/L (9-52) POC Alk Phosphatase 80 IU/L IU/L (38-126) POC Troponin I 0.00 ng/mL ng/mL (0.00-0.08) POC Total Protein 7.1 g/dL g/dL (6.3-8.2) POC Albumin 3.9 g/dL g/dL (3.5-5.0) POC Amylase 65 IU/L IU/L (30-110) Medications Given: Discontinued Medications Al Hydroxide/Mg Hydroxide (Maalox Susp) 30 ml PO EDNOW ONE Stop: 06/11/18 22:39 Last Admin: 06/11/18 22:54 Dose: 30 ml Cephalexin HCl (Keflex) 500 mg PO EDNOW ONE PRN Reason: Protocol Stop: 06/11/18 23:02 Last Admin: 06/11/18 23:38 Dose: 500 mg Hyoscyamine Sulfate (Levsin, Hyomax-Sl) 0.125 mg PO EDNOW ONE Stop: 06/11/18 22:39 Last Admin: 06/11/18 22:54 Dose: 0.125 mg Ketorolac Tromethamine (Toradol) 15 mg IVP EDNOW ONE Stop: 06/11/18 22:17 Last Admin: 06/11/18 22:54 Dose: Not Given Point of Care Test Results: CBC CBC Collection Date 06/11/18 CBC Collection Time 22:25 WBC 5.72 RBC 4.52 HGB 13.8 HCT 41.3 PLT 162 Neut # 2.11 Neut 37.0 LYMPH # 3.13 LYMPH 54.7 MCV 91.4 Chemistry 06/12/18 06/11/18 06/11/18 00:06 23:09 22:34 POC Sodium 138 mEq/L mEq/L (135-145) POC Potassium 3.4 mEq/L mEq/L (3.3-5.0) POC Chloride 106.0 mEq/L mEq/L (97-110) POC Total CO2 28 mEq/L mEq/L (22-31) POC BUN 10 mg/dL mg/dL (7-23) POC Creatinine 0.8 mg/dL mg/dL (0.6-1.0) POC Glucose 107 mg/dL H mg/dL (70-100) POC Calcium 9.4 mg/dL mg/dL (8.5-10.4) POC Total Bilirubin 0.6 mg/dL mg/dL (0.1-1.4) POC GGT 19 IU/L IU/L (5-65) POC AST 24 IU/L IU/L (14-46) POC ALT 20 IU/L IU/L (9-52) POC Alk Phosphatase 80 IU/L IU/L (38-126) POC Troponin I 0.00 ng/mL ng/mL (0.00-0.08) POC Total Protein 7.1 g/dL g/dL (6.3-8.2) POC Albumin 3.9 g/dL g/dL (3.5-5.0) POC Amylase 65 IU/L IU/L (30-110) D-Dimer D-Dimer Collection Date 06/11/18 D-Dimer Collection Time 22:25 D-Dimer (ng/ml) <100ng/ml Liver Function Tests LFT Collection Date 06/11/18 LFT Collection Time 22:25 Urine Dip Collection Date 06/11/18 Collection Time 22:48 Specific [place] (1.002-1.030) 1.015 PH (5.0-7.5) 7.0 Leukocytes (Negative) 3+ Nitrites (Negative) Negative Protein (Negative) Negative Glucose (Negative) Negative Ketones (Negative) Negative Urobilnogen (0.2-1.0 EU) 1.0 Bilirubin (Negative) Negative Blood (Negative) Negative Departure - Departure Disposition: Home, Routine, Self-Care Clinical Impression: Urinary tract infection Qualifiers: Urinary tract infection type: acute cystitis Hematuria presence: without hematuria Qualified Code(s): N30.00 - Acute cystitis without hematuria GERD (gastroesophageal reflux disease) Qualifiers: Esophagitis presence: esophagitis presence not specified Qualified Code(s): K21.9 - Gastro-esophageal reflux disease without esophagitis Condition: Good Instructions: Urinary Tract Infection in Women (ED), Gastroesophageal Reflux Disease (ED) Additional Instructions: Diagnosis: Urinary tract infection Plan: Keflex antibiotic Drink plenty fluids Start up the Prilosec. See your doctor in the next week for follow up. Call us in 3 days for the final urine results. Referrals: Patient,NotPresent [Primary Care Provider] - As per Instructions Prescriptions: Cephalexin [Keflex (*)] 500 mg PO TID #21 cap Omeprazole Magnesium 20 mg PO DAILY #30 capsule. Print Language: Lithuanian
[2018-06-11] MEDS ORDERED: CEPHALEXIN 500 MG CAP PO ONE (23:01)
[2018-06-12 00:26] VITALS: BP 142/90
--- NOTE | 2018-06-18 07:19 | CPEKG ---
Test Reason : OPEN Blood Pressure : / mmHG Vent. Rate : 069 BPM Atrial Rate : 069 BPM P-R Int : 171 ms QRS Dur : 086 ms QT Int : 383 ms P-R-T Axes : 057 050 015 degrees QTc Int : 411 ms Sinus rhythm Probable left atrial enlargement Confirmed by Terrance Jamison ([id number]) on 06/18/2018 7:18:59 AM Referred By: ALLAN SAWANT Confirmed By:Terrance Jamison
== END 2018-06-12 00:52 | disposition home or self-care (01) ==
LOC: CED 22:00
DX: N30.00 Acute cystitis without hematuria (principal); K21.9 Gastro-esophageal reflux disease without esophagitis
CPT/HCPCS: 71046-PO; 80048-ER; 80076-ER; 82150-ER; 84484-ER; 85025-QW-ER; 85379-QW-ER; 99284-ER; J1885